=== PATIENT | female | born 1955 | race African-American/Black ===

== ENCOUNTER 2018-11-21 15:57 | Emergency (ER) | payer MEDICAID ==
[~2018-11-21] VITALS: Ht 157.5 cm; Wt 65.0 kg
[2018-11-21 17:02] VITALS: BP 123/80
== END 2018-11-21 23:01 | disposition left against medical advice (07) ==
LOC: ER 15:57
DX: Z53.21 Procedure and treatment not carried out due to patient leaving prior to being seen by health care provider (principal)

== ENCOUNTER 2018-11-22 14:52 | Emergency (ER) | payer MEDICAID ==
[~2018-11-22] VITALS: Ht 157.5 cm; Wt 65.0 kg
[2018-11-22] MEDS ORDERED: SODIUM CHLORIDE 0.9% 1,000 ML IV ONE (15:15)
[2018-11-22] MEDS ORDERED: PANTOPRAZOLE SODIUM 40 MG/VIAL IV STA (15:15)
[2018-11-22] MEDS ORDERED: ONDANSETRON HCL 4MG/2ML INJ IV ONE (15:15)
[2018-11-22 16:01] LABS: CHLORIDE 109 mEq/L (98-107); PROTHROMBIN TIME 10.1 sec (9.6-11.0)
[2018-11-22 16:02] LABS: BASOPHILS % 1.1 % (0.0-2.0); EOSINOPHILS % 3.6 % (0.0-5.0); HEMATOCRIT. 36.4 % (36.0-48.0); HEMOGLOBIN. 12.5 g/dL (12.0-16.0); LYMPHOCYTES % 31.2 % (20.0-50.0); MEAN CORPUSCULAR HEMOGLOBIN 31.6 pg (28.0-32.0); MEAN CORPUSCULAR VOLUME 92.3 fL (81.0-99.0); MEAN PLATELET VOLUME 9.7 fl (7.4-10.4); MONOCYTES % 9.3 % (2.0-8.0); NEUTROPHILS % 54.8 % (40.0-76.0); PLATELET 210 x1000/uL (130-400); RED BLOOD CELL COUNT 3.94 mill/uL (4.2-5.4); RED CELL DISTRIBUTION WIDTH 13.3 % (11.6-14.6)
[2018-11-22] MEDS ORDERED: MAGNESIUM/ALUMINUM HYDROXIDE/SIMETHICONE 30ML UDC PO STA (16:15)
[2018-11-22] MEDS ORDERED: VISCOUS LIDOCAINE 2% 15 ML UDC PO STA (16:15)
[2018-11-22 18:05] VITALS: BP 147/81
== END 2018-11-22 18:11 | disposition home or self-care (01) ==
LOC: ER 14:52
DX: K92.2 Gastrointestinal hemorrhage, unspecified (principal); J44.9 Chronic obstructive pulmonary disease, unspecified; Z98.890 Other specified postprocedural states
CPT/HCPCS: 36415; 80053; 83690; 85025; 85610; 86850; 86900; 86901; 96361; 96374; 96375; 99283; C9113; J2405; J7030

== ENCOUNTER 2018-12-28 08:14 | Emergency (ER) | payer MEDICAID ==
[~2018-12-28] VITALS: Ht 160 cm; Wt 64.5 kg
[2018-12-28] MEDS ORDERED: ACETAMINOPHEN 500MG TABLET PO ONE (11:45)
[2018-12-28] MEDS ORDERED: SODIUM CHLORIDE 0.9% 1,000 ML IV ONE (11:45)
[2018-12-28 12:54] LABS: EOSINOPHILS % 3.7 % (0.0-5.0); HEMATOCRIT. 38.2 % (36.0-48.0); HEMOGLOBIN. 12.8 g/dL (12.0-16.0); LYMPHOCYTES % 19.2 % (20.0-50.0); MEAN CORPUSCULAR VOLUME 92.3 fL (81.0-99.0); MEAN PLATELET VOLUME 9.1 fl (7.4-10.4); MONOCYTES % 8.6 % (2.0-8.0); NEUTROPHILS % 67.5 % (40.0-76.0); PLATELET 208 x1000/uL (130-400); RED BLOOD CELL COUNT 4.14 mill/uL (4.2-5.4)
[2018-12-28 13:04] LABS: CHLORIDE 110 mEq/L (98-107)
[2018-12-28 14:27] VITALS: BP 154/78
== END 2018-12-28 14:34 | disposition home or self-care (01) ==
LOC: ER 08:14
DX: R05 Cough (principal); R09.81 Nasal congestion; J44.9 Chronic obstructive pulmonary disease, unspecified; I10 Essential (primary) hypertension; Z90.89 Acquired absence of other organs; Z98.51 Tubal ligation status; Z88.3 Allergy status to other anti-infective agents; Z98.890 Other specified postprocedural states
CPT/HCPCS: 36415; 71045; 80048; 85025; 99284; J7030

== ENCOUNTER 2020-02-06 04:18 | Emergency (ER) | payer MEDICAID ==
[~2020-02-06] VITALS: Ht 160 cm; Wt 68.0 kg
[2020-02-06] MEDS ORDERED: ACETAMINOPHEN 325MG TABLET PO ONE (04:45)
[2020-02-06 06:07] VITALS: BP 126/69
== END 2020-02-06 06:08 | disposition home or self-care (01) ==
LOC: ER 04:18
DX: S93.402A Sprain of unspecified ligament of left ankle, initial encounter (principal); J44.1 Chronic obstructive pulmonary disease with (acute) exacerbation; I10 Essential (primary) hypertension; Z98.51 Tubal ligation status; Z90.89 Acquired absence of other organs; X50.1XXA Overexertion from prolonged static or awkward postures, initial encounter; Y93.89 Activity, other specified; Y92.89 Other specified places as the place of occurrence of the external cause; Y99.8 Other external cause status
CPT/HCPCS: 73630; 99283

== ENCOUNTER 2022-03-03 14:41 | Emergency (ER) | payer OTHER, MEDICAID ==
[~2022-03-03] VITALS: Ht 180.3 cm; Wt 73.0 kg
[2022-03-03] MEDS ORDERED: SODIUM CHLORIDE 0.9% 1,000 ML IV ONE (16:15)
[2022-03-03] MEDS ORDERED: MECLIZINE 25MG TABLET PO NR (16:15)
[2022-03-03] MEDS ORDERED: MECLIZINE 25MG TABLET PO ONE (16:15)
[2022-03-03] MEDS ORDERED: MECL-159 MT (17:10)
[2022-03-03 17:33] LABS: EOSINOPHILS % 3.5 % (0.0-5.0); HEMATOCRIT. 36.3 % (36.0-48.0); HEMOGLOBIN. 11.9 g/dL (12.0-16.0); LYMPHOCYTES % 20.9 % (20.0-50.0); MEAN CORPUSCULAR HEMOGLOBIN 30.6 pg (28.0-32.0); MEAN CORPUSCULAR VOLUME 93.3 fL (81.0-99.0); MEAN PLATELET VOLUME 9.2 fl (7.4-10.4); NEUTROPHILS % 65.6 % (40.0-76.0); PLATELET 218 x1000/uL (130-400); RED BLOOD CELL COUNT 3.89 mill/uL (4.2-5.4); RED CELL DISTRIBUTION WIDTH 13.2 % (11.6-14.6)
[2022-03-03 17:54] LABS: CHLORIDE 109 mEq/L (98-107)
[2022-03-03 18:20] VITALS: BP 133/61
== END 2022-03-03 18:23 | disposition home or self-care (01) ==
LOC: ER 14:58
DX: H81.10 Benign paroxysmal vertigo, unspecified ear (principal); I10 Essential (primary) hypertension; E78.00 Pure hypercholesterolemia, unspecified; J44.1 Chronic obstructive pulmonary disease with (acute) exacerbation; Z20.822 Contact with and (suspected) exposure to COVID-19; Z98.51 Tubal ligation status; Z98.890 Other specified postprocedural states
CPT/HCPCS: 36415; 71045; 80053; 83880; 85025; 87426; 93005; 99285; C9803; J7030; J8597